=== PATIENT | female | born 1985 | race Two or more races ===

== ENCOUNTER 2021-10-02 11:53 | Inpatient (IN) ==
[2021-10-02] MEDS ORDERED: PHENERGAN INJ 25 MG IM PRN ×2 (12:27→17:28)
[2021-10-02] MEDS ORDERED: STADOL INJ IVP PRN (12:27)
[2021-10-02] MEDS ORDERED: MORPHINE SULFATE INJ 2 MG INJ IVP PRN (12:27)
[2021-10-02] MEDS ORDERED: PITOCIN IVP ONE (12:27)
[2021-10-02] MEDS ORDERED: D5 LR + PITOCIN 10 UNITS/L 10 UNITS/1,000 ML BAG IV PRN (12:27)
[2021-10-02] MEDS ORDERED: REGLAN INJ 10 MG VIAL IVP PRN (12:27)
[2021-10-02 12:43] LABS: BASOPHILS % (AUTO) 0.6 % (0.2-1.0); EOSINOPHILS % (AUTO) 0.5 % (0.9-2.9); HEMATOCRIT 31.2 % (36.0-47.0); HEMOGLOBIN 10.7 g/dL (12.0-16.0); LYMPHOCYTES # (AUTO) 1.4 X10^3/uL (1.3-2.9); LYMPHOCYTES % (AUTO) 18.9 % (21.0-51.0); MEAN CORPUSCULAR HEMOGLOBIN 30.1 pg (27.0-34.0); MEAN CORPUSCULAR HGB CONC 34.4 g/dL (33.0-35.0); MEAN CORPUSCULAR VOLUME 87.4 fL (80.0-100.0); MEAN PLATELET VOLUME 8.7 fL (7.4-11.0); MONOCYTES # (AUTO) 0.6 x10^3/uL (0.3-0.8); NEUTROPHILS # (AUTO) 5.3 x10^3/uL (2.2-4.8); RED BLOOD COUNT 3.57 X10^6/uL (3.5-5.4); RED CELL DISTRIBUTION WIDTH 14.9 % (11.6-16.5); WHITE BLOOD COUNT 7.3 X10^3/uL (3.6-10.0)
[2021-10-02 12:48] LABS: BLOOD UREA NITROGEN 6 mg/dL (7-18); CALCIUM 8.7 mg/dL (8.5-10.1); CHLORIDE 101 mmol/L (98-107); CREATININE 0.59 mg/dL (0.55-1.02); SODIUM 137 mmol/L (136-145); eGFR NON BLACK RACES > 60 (>60)
[2021-10-02] MEDS ORDERED: AMPICILLIN VIAL 2 GRAM 2 G in NS 100 ML IV + SPIKE MINIBAG* 100 ML IV SCH (13:00)
[2021-10-02] MEDS ORDERED: D5 1/2 NS 1,000 ML 0 ML IV ONE (13:23)
[2021-10-02] MEDS ORDERED: AMPICILLIN VIAL 2 GRAM ONE (13:23)
[2021-10-02] MEDS ORDERED: LR 1,000 ML IV 1,000 ML IV ONE (13:23)
[2021-10-02] MEDS ORDERED: PITOCIN ONE (13:23)
[2021-10-02] MEDS ORDERED: BETADINE SOLN ONE (13:24)
[2021-10-02] MEDS ORDERED: D5 1/2 NS 1,000 mL + PITOCIN 20 UNITS/L IV 20 UNITS/1,000 ML BAG IV ONE (13:24)
[2021-10-02] MEDS ORDERED: NS 100 ML IV 100 ML ONE ×2 (13:24→15:56)
[2021-10-02] MEDS ORDERED: D5 LR + PITOCIN 10 UNITS/L 10 UNITS/1,000 ML BAG IV ONE (13:24)
[2021-10-02 14:43] LABS: BILIRUBIN,URINE NEGATIVE (NEGATIVE); BLOOD/HEMOGLOBIN,URINE NEGATIVE (NEGATIVE); GLUCOSE, URINE NEGATIVE (NEGATIVE); KETONES,URINE NEGATIVE (NEGATIVE); LEUKOCYTE ESTERASE ,URINE NEGATIVE (NEGATIVE); NITRITES,URINE NEGATIVE (NEGATIVE); PROTEIN,URINE 1+ (NEGATIVE); UROBILINOGEN,URINE NORMAL (NORMAL)
[2021-10-02 14:54] LABS: APPEARANCE,URINE CLEAR (CLEAR); COLOR,URINE PALE YELLOW (YELLOW)
[2021-10-02 14:55] LABS: BACTERIA,URINE TRACE /HPF (NEGATIVE); RBC,URINE 0-2 /HPF (0-3); SQUAMOUS EPITHELIAL CELL,UR RARE /HPF (NEGATIVE)
[2021-10-02] MEDS ORDERED: AMPICILLIN VIAL 1 GRAM ONE (15:56)
[2021-10-02] MEDS ORDERED: AMPICILLIN VIAL 1 GRAM 1 G in NS 100 ML IV 100 ML IV SCH (16:30)
[2021-10-02] MEDS ORDERED: STADOL INJ ONE (16:48)
[2021-10-02] MEDS ORDERED: XYLOCAINE-MPF 1% ONE (17:15)
[2021-10-02] MEDS ORDERED: MOTRIN TAB 800 MG PO PRN (17:28)
[2021-10-02] MEDS: D5 1/2 NS 1,000 ML 1,000 ML with PITOCIN 20 UNITS IV SCH ×2 (17:53)
[2021-10-02] MEDS ORDERED: DERMOPLAST PAIN RELIEF SPRAY TOP PRN (18:11)
[2021-10-02] MEDS ORDERED: MILK OF MAGNESIA PO PRN (18:11)
[2021-10-02] MEDS ORDERED: AMBIEN PO PRN (18:11)
[2021-10-02] MEDS: MOTRIN TAB 800 MG PO PRN (22:36)
[2021-10-03] MEDS: D5 1/2 NS 1,000 ML 1,000 ML with PITOCIN 20 UNITS IV SCH ×4 (02:57→15:27)
[2021-10-03 05:17] LABS: HEMATOCRIT 27.8 % (36.0-47.0)
[2021-10-03] MEDS: SYNTHROID 25 mcg TAB PO SCH (05:45)
[2021-10-03] MEDS: PRENATAL PLUS PO SCH (08:40)
[2021-10-03] MEDS: MOTRIN TAB 800 MG PO PRN (08:48)
[2021-10-04] MEDS: SYNTHROID 25 mcg TAB PO SCH (06:12)
[2021-10-04 08:04] VITALS: BP 100/52
[2021-10-04] MEDS: MOTRIN TAB 800 MG PO PRN (08:19)
[2021-10-04] MEDS: PRENATAL PLUS PO SCH (08:19)
--- NOTE | 2021-10-05 19:17 | DR.PREG ---
HPI PCP Primary Care Physician: CARLOS Chief Complaint Chief Complaint:: "MY WATER HAS BROKE AND I AM 36 WEEKS " COVID-19 Coronavirus risk:travel/contact w/high risk person: No Has patient experienced Coronavirus symptoms: No Source History Provided: Patient Mode of Arrival Mode of Arrival: Ambulatory Timing Onset of Chief Complaint: 10/02/21 Pain: None PMH PMH Past Medical History: No Past Surgical History: No Family History History of Family Medical Conditions: No Family Medical History: Diabetes Mellitus, Coronary Artery Disease and Hypertension Social History Does patient currently use any type of tobacco product: No Type of Tobacco Use: None Does any household member use tobacco: No Alcohol Use: None Do you use any recreational Drugs:: No Lives With: Family Lives Where: Home Travel Risk Coronavirus risk:travel/contact w/high risk person: No Has patient experienced Coronavirus symptoms: No Infectious screening In the last 2 months have you had wt loss of >10#?: NO Have you had fever, night sweats or hemotysis?: No Have you traveled outside the country in the last 6 months?: No Isolation: Standard PE Vital Signs Vitals: Blood Pressure [Left Arm] 126/78 ROR Labs Reviewed Result Diagrams: 10/03/21 05:05 10/02/21 12:24 Laboratory: WBC 7.3 X10^3/uL (3.6-10.0) 10/02/21 12:24 RBC 3.57 X10^6/uL (3.5-5.4) 10/02/21 12:24 Hgb 10.7 g/dL (12.0-16.0) L 10/02/21 12:24 Hct 31.2 % (36.0-47.0) L 10/02/21 12:24 MCV 87.4 fL (80.0-100.0) 10/02/21 12:24 MCH 30.1 pg (27.0-34.0) 10/02/21 12:24 MCHC 34.4 g/dL (33.0-35.0) 10/02/21 12:24 RDW 14.9 % (11.6-16.5) 10/02/21 12:24 Plt Count 236 X10^3/uL (150.0-450.0) 10/02/21 12:24 MPV 8.7 fL (7.4-11.0) 10/02/21 12:24 Neut % (Auto) 72.0 % (42.0-75.0) 10/02/21 12:24 Lymph % (Auto) 18.9 % (21.0-51.0) L 10/02/21 12:24 [place] % (Auto) 8.0 % (0.0-13.0) 10/02/21 12:24 Eos % (Auto) 0.5 % (0.9-2.9) L 10/02/21 12:24 Baso % (Auto) 0.6 % (0.2-1.0) 10/02/21 12:24 Neut # (Auto) 5.3 x10^3/uL (2.2-4.8) H 10/02/21 12:24 Lymph # (Auto) 1.4 X10^3/uL (1.3-2.9) 10/02/21 12:24 [place] # (Auto) 0.6 x10^3/uL (0.3-0.8) 10/02/21 12:24 Eos # (Auto) 0.0 x10^3/uL (0.0-0.2) 10/02/21 12:24 Baso # (Auto) 0.0 X10^3/uL (0.0-0.1) 10/02/21 12:24 Absolute Nucleated RBC 0.0 /100WBC 10/02/21 12:24 Sodium 137 mmol/L (136-145) 10/02/21 12:24 Corrected Sodium TNP 10/02/21 12:24 Potassium 3.7 mmol/L (3.5-5.1) 10/02/21 12:24 Chloride 101 mmol/L (98-107) 10/02/21 12:24 Carbon Dioxide 26.0 mmol/L (21-32) 10/02/21 12:24 BUN 6 mg/dL (7-18) L 10/02/21 12:24 Creatinine 0.59 mg/dL (0.55-1.02) 10/02/21 12:24 Est GFR (MDRD) Af Amer > 60 (>60) 10/02/21 12:24 Est GFR (MDRD) Non-Af > 60 (>60) 10/02/21 12:24 Glucose 95 mg/dL (65-99) 10/02/21 12:24 Calcium 8.7 mg/dL (8.5-10.1) 10/02/21 12:24 RPR Nonreactive (NONREACTIVE) 10/02/21 12:24 SARS-CoV-2 (PCR) Negative (NEGATIVE) 10/02/21 12:24 Blood Type O POSITIVE 10/02/21 12:24 Antibody Screen Negative 10/02/21 12:24 Opioid Opioid Risk Tool Age (Devin box if 16-45): Yes History of Preadolescent Sexual Abuse: No Total: 1 Total Score Risk Category: Low Risk Copyright: Nick PE[employer] predicting aberrant behaviors Discharge Plan Diagnosis Discharge Problem: Discharge Plan Patient Disposition: 09 ADMITTED INPATIENT Condition: Stable
== END 2021-10-04 13:20 | disposition home or self-care (01) | DRG 807 ==
LOC: ER 12:04 → LD 12:26 → MED/SURG 18:11
PROVIDERS: ADMIT Obstetrics & Gynecology Obstetrics; ATTEND Obstetrics & Gynecology Obstetrics
DX: O70.1 Second degree perineal laceration during delivery; O60.14X0 Preterm labor third trimester with preterm delivery third trimester, not applicable or unspecified; Z37.0 Single live birth; Z3A.34 34 weeks gestation of pregnancy; Z20.822 Contact with and (suspected) exposure to COVID-19